=== PATIENT | male | born 1995 | race Caucasian/White ===

== ENCOUNTER 2018-03-08 11:56 | Emergency (ER) | payer OTHER ==
[2018-03-08 13:20] VITALS: BP 134/67
--- NOTE | 2018-03-08 13:26 | UC ---
Lower Extremity/Ankle HPI - HPI Summary HPI Summary: The patient is a 22-year-old noted his left ankle. This occurred 2 days ago. He is pain-free at rest. He has lateral ankle pain with weightbearing. - History of Current Complaint Chief Complaint: UCLowerExtremity Stated Complaint: SP FALL-LT FOOT INJURY Time Seen by Provider: 03/08/18 13:15 Onset/Duration: Sudden Onset Severity Initially: Moderate Severity Currently: None Pain Intensity: 0 Pain Scale Used: 0-10 Numeric Aggravating Factor(s): Standing, Ambulation Alleviating Factor(s): Rest, Elevation Able to Bear Weight: Yes Feet (Multiple View): 1 - tender/swollen/ecchymotic, MM not tender, base of 5th MT nontender, achilles non tender - Allergies/Home Medications Allergies/Adverse Reactions: Allergies Allergy/AdvReac Type Severity Reaction Status Date / Time Penicillins Allergy Hives Verified 03/08/18 13:17 Home Medications: Home Medications Ibuprofen TAB* [Advil TAB*] 200 mg PO Q6H PRN 03/08/18 [History Confirmed ] PMH/Surg Hx/FS Hx/Imm Hx Previously Healthy: Yes - Surgical History Surgical History: None - Family History Known Family History: Positive: Hypertension Negative: Cardiac Disease, Diabetes - Social History Alcohol Use: None Substance Use Type: None Smoking Status (MU): Never Smoked Tobacco Review of Systems All Other Systems Reviewed And Are Negative: Yes Constitutional: Positive: Negative Skin: Positive: Bruising Eyes: Positive: Negative ENT: Positive: Negative Respiratory: Positive: Negative Cardiovascular: Positive: Negative Gastrointestinal: Positive: Negative Genitourinary: Positive: Negative Motor: Positive: Negative Neurovascular: Positive: Negative Musculoskeletal: Positive: Edema Neurological: Positive: Negative Psychological: Positive: Negative Physical Exam Triage Information Reviewed: Yes Appearance: Well-Appearing, No Pain Distress, Well-Nourished Vital Signs: Initial Vital Signs Temp 99.0 F 03/08/18 13:15 Pulse 68 03/08/18 13:15 Resp 15 03/08/18 13:15 BP 134/67 03/08/18 13:15 Pulse Ox 100 03/08/18 13:15 ENT: Positive: Hearing grossly normal. Negative: Nasal congestion, Nasal drainage, Trismus, Muffled voice, Hoarse voice Dental Exam: Normal Neck: Positive: Supple, Nontender, No Lymphadenopathy Respiratory: Positive: Lungs clear, Normal breath sounds, No respiratory distress Cardiovascular: Positive: RRR, No Murmur Musculoskeletal: Positive: Edema @ - left LM, Other: - antalgic gait Neurological: Positive: Alert, Other: Psychological Exam: Normal Skin Exam: Normal Diagnostics - Radiology No standard instances Radiology Interpretation Completed By: Radiologist Summary of Radiographic Findings: #. Severe soft tissue swelling over the lateral malleolus. #. Negative for fracture or malalignment. #. Talocrural joint effusion. Lower Extremity Course/Dx - Differential Dx/Diagnosis Provider Diagnosis: Left ankle sprain Discharge - Sign-Out/Discharge Documenting (check all that apply): Patient Departure All imaging exams completed and their final reports reviewed: Yes - Discharge Plan Condition: Stable Disposition: HOME Patient Education Materials: Ankle Sprain (ED), R.I.C.E. Treatment (ED) Referrals: Emory Chapa MD [Medical Doctor] - As Soon As Possible Additional Instructions: In addition to soft tissue swelling you also have fluid (an effusion ) in your ankle joint I suggest you follow up with an orthopedist for this injury rest elevate ice remove fabiola at bedtime may rewrap in AMs I expect your bruising to worsening over the next few days tylenol or advil if needed - Billing Disposition and Condition Condition: STABLE Disposition: Home
== END 2018-03-08 14:14 | disposition home or self-care (01) ==
LOC: UCCORT 11:56
DX: S93.492A Sprain of other ligament of left ankle, initial encounter (principal); R26.89 Other abnormalities of gait and mobility; Z88.0 Allergy status to penicillin; W19.XXXA Unspecified fall, initial encounter; Y92.9 Unspecified place or not applicable
CPT/HCPCS: 99203; G0463